=== PATIENT | female | born 1990 | race Caucasian/White ===

== ENCOUNTER 2021-05-24 19:58 | Emergency (ER) | payer OTHER ==
[~2021-05-24] VITALS: Ht 172.7 cm; Wt 104.3 kg
[2021-05-24] MEDS ORDERED: IBUPROFEN 800800 M1 PO (20:22)
[2021-05-24] MEDS ORDERED: MUPIROCIN1 GM TOP (20:22)
[2021-05-24] MEDS ORDERED: CLEOCIN HCL300 MG PO (20:22)
[2021-05-24 20:45] VITALS: BP 146/78
== END 2021-05-24 20:45 | disposition home or self-care (01) ==
LOC: M.ERS 19:58
DX: S61.452A Open bite of left hand, initial encounter (principal); S61.451A Open bite of right hand, initial encounter; Z91.018 Allergy to other foods; Z91.010 Allergy to peanuts; W55.01XA Bitten by cat, initial encounter; Y93.89 Activity, other specified; Y92.89 Other specified places as the place of occurrence of the external cause; Y99.8 Other external cause status